=== PATIENT | female | born 1995 | race Caucasian/White ===

== ENCOUNTER 2024-03-19 02:59 | Emergency (ER) | payer MEDICARE, MEDICAID ==
[~2024-03-19] VITALS: Ht 167.6 cm; Wt 91.0 kg
[2024-03-19 03:07] VITALS: BP 119/97; TEMP 98.2
[2024-03-19] MEDS: ALBUTEROL (0.083%) 2.5MG/3ML NEB HHN STA (06:48)
[2024-03-19] MEDS: IPRATROPIUM BROMIDE (0.02%) 0.5MG/2.5ML NEB HHN STA (06:48)
[2024-03-19 06:50] VITALS: PULSE 104; RESP 22; O2SAT 99
[2024-03-19] MEDS ORDERED: IBUP-2029 MT (06:53)
[2024-03-19] MEDS: ACETAMINOPHEN 325MG TABLET PO ONE (08:04)
== END 2024-03-19 08:07 | disposition home or self-care (01) ==
LOC: ER 04:00
DX: S01.01XA Laceration without foreign body of scalp, initial encounter (principal); J45.909 Unspecified asthma, uncomplicated; F20.9 Schizophrenia, unspecified; Y08.89XA Assault by other specified means, initial encounter; Y93.89 Activity, other specified; Y92.89 Other specified places as the place of occurrence of the external cause; Y99.8 Other external cause status
CPT/HCPCS: 94640; 99283; 99284